=== PATIENT | female | born 1975 | race Caucasian/White ===

== ENCOUNTER 2020-06-03 09:00 | Emergency (ER) | payer MEDICARE ==
[~2020-06-03 09:00] MED LIST: HYDROCODON-ACE1 EAC4 PO; MULTI FOR HER1 EAC1 PO; PRILOSEC20 MG PO
== END 2020-06-03 10:20 | disposition home or self-care (01) ==
LOC: FER 09:00
DX: G56.31 Lesion of radial nerve, right upper limb (principal); M21.331 Wrist drop, right wrist; K21.9 Gastro-esophageal reflux disease without esophagitis; F17.210 Nicotine dependence, cigarettes, uncomplicated; Z86.711 Personal history of pulmonary embolism; Z87.820 Personal history of traumatic brain injury; Z79.899 Other long term (current) drug therapy
CPT/HCPCS: 99284